=== PATIENT | male | born 1990 | race American Indian/Alaskan Native ===

== ENCOUNTER 2018-06-04 00:36 | Emergency (ER) | payer SELFPAY ==
[2018-06-04 00:45] VITALS: BP 120/80; PULSE 88; RESP 16; TEMP 98.4; O2SAT 98
--- NOTE | 2018-06-04 01:02 | C.PDOC ---
History Of Present Illness went to exmine the patient, but pt had eloped Time Seen by Provider: 06/04/18 01:01 Chief Complaint (Nursing): Substance Abuse Past Medical History Vital Signs: Last Vital Signs Temp 98.4 F 06/04/18 00:41 Pulse 88 06/04/18 00:41 Resp 16 06/04/18 00:41 BP 120/80 06/04/18 00:41 Pulse Ox 98 06/04/18 00:41 Family History: States: Unknown Family Hx - Social History Hx Tobacco Use: No Hx Alcohol Use: Yes Hx Substance Use: Yes - Immunization History Hx Tetanus Toxoid Vaccination: No Hx Influenza Vaccination: No Hx Pneumococcal Vaccination: No ED Course And Treatment O2 Sat by Pulse Oximetry: 98 Disposition Counseled Patient/Family Regarding: Diagnosis - Disposition Disposition: ELOPEMENT - ER ONLY Disposition Time: 01:02 Condition: FAIR Forms: [facility] (Kittitian) - Clinical Impression Clinical Impression: Encounter for medical assessment
== END 2018-06-04 01:01 | disposition left against medical advice (07) ==
LOC: C.ER 00:36
DX: Z02.89 Encounter for other administrative examinations (principal)